=== PATIENT | male | born 1990 | race African-American/Black ===

== ENCOUNTER 2019-05-14 13:04 | Emergency (ER) | payer SELFPAY ==
[~2019-05-14] VITALS: Ht 180.3 cm; Wt 99.8 kg
[2019-05-14 14:05] VITALS: BP 149/97
--- NOTE | 2019-05-14 14:17 | NUR ---
WAIT AT LOBBY.
--- NOTE | 2019-05-14 15:22 | NUR ---
PT AMB TO CHAIR D
--- NOTE | 2019-05-14 15:37 | NUR ---
C/O L EYE PAIN , BLURRY VISION X THIS AM. WORE CONTECT LENS YESTERDAY. PT DENIES N/V/D; SKIN IS INTACT, PINK/WARM/DRY; AAOX4, PERRL, WITH EVEN AND STEADY GAIT; LUNGS CLEAR BL, BREATHING UNLABORED; HR EVEN AND REGULAR, BL PERIPHERAL PULSES PRESENT; BS ACTIVE X4, NO TENDERNESS TO PALPATION. PT DENIES ANY FEVER, CP, SOB, OR COUGH AT THIS TIME; PT STATES 5/10 PAIN AT THIS TIME; VSS; PATIENT POSITIONED FOR COMFORT; HOB ELEVATED; BEDRAILS UP X2; BED DOWN.
[2019-05-14] MEDS ORDERED: TETRACAINE HCL/PF 0.5% OPTH 4 ML BTL OP ONE ×2 (15:50→16:25)
[2019-05-14] MEDS ORDERED: FLUORESCEIN OPTH STRIP 1 MG OP ONE (15:50)
--- NOTE | 2019-05-14 16:02 | NUR ---
PT TO BED 7
[2019-05-14 16:35] VITALS: BP 149/97
--- NOTE | 2019-05-14 16:36 | NUR ---
Patient discharged with v/s stable. Written and verbal after care instructions given and explained. Patient alert, oriented and verbalized understanding of instructions. Ambulatory with steady gait. All questions addressed prior to discharge. ID band removed. Patient advised to follow up with PMD. Rx of EYE DROPS given. Patient educated on indication of medication including possible reaction and side effects. Opportunity to ask questions provided and answered.
== END 2019-05-14 16:36 | disposition home or self-care (01) ==
LOC: MED 13:04
DX: S05.02XA Injury of conjunctiva and corneal abrasion without foreign body, left eye, initial encounter (principal); X58.XXXA Exposure to other specified factors, initial encounter; Y93.89 Activity, other specified; Y92.89 Other specified places as the place of occurrence of the external cause; Y99.8 Other external cause status
CPT/HCPCS: 99283

== ENCOUNTER 2019-05-15 09:34 | Emergency (ER) | payer SELFPAY ==
[~2019-05-15] VITALS: Ht 180.3 cm; Wt 99.8 kg
[2019-05-15 09:48] VITALS: BP 166/76
--- NOTE | 2019-05-15 09:51 | NUR ---
PT TO BED 6 WITH STEADY GAIT
--- NOTE | 2019-05-15 10:15 | NUR ---
29 Y/O M C/O LEFT EYE PAIN. PT WAS IN THE ED YESTERDAY FOR CORNEAL ABRASION. PT STATES INCREASED PAIN TODAY. PT HAS BEEN USING MEDICATION PRESCRIBED YESTEDAY. PT POSITIONED FOR COMFORT. HALLE
[2019-05-15] MEDS ORDERED: TETRACAINE HCL/PF 0.5% OPTH 4 ML BTL LEFT EYE ONE (10:20)
[2019-05-15 10:39] VITALS: BP 166/76
--- NOTE | 2019-05-15 10:39 | NUR ---
Patient discharged with v/s stable. Written and verbal after care instructions given and explained. Patient verbalized understanding. Ambulatory with steady gait. All questions addressed prior to discharge. Advised to follow up with PMD.
== END 2019-05-15 10:39 | disposition home or self-care (01) ==
LOC: MED 09:34
DX: S05.02XA Injury of conjunctiva and corneal abrasion without foreign body, left eye, initial encounter (principal); X58.XXXA Exposure to other specified factors, initial encounter; Y93.89 Activity, other specified; Y92.89 Other specified places as the place of occurrence of the external cause; Y99.8 Other external cause status
CPT/HCPCS: 99283

== ENCOUNTER 2021-01-26 10:33 | Emergency (ER) | payer SELFPAY ==
[~2021-01-26] VITALS: Ht 180.3 cm; Wt 104.3 kg
[2021-01-26 10:40] VITALS: BP 120/89
[2021-01-26] MEDS ORDERED: ALBU0.0912 IH (12:10)
[2021-01-26] MEDS ORDERED: BENZ-196 PO (12:10)
[2021-01-26] MEDS ORDERED: DOXY100C12 PO (12:10)
== END 2021-01-26 12:56 | disposition home or self-care (01) ==
LOC: MED 10:33
DX: J18.9 Pneumonia, unspecified organism (principal); Z79.899 Other long term (current) drug therapy; Z79.2 Long term (current) use of antibiotics; Z79.51 Long term (current) use of inhaled steroids
CPT/HCPCS: 71045; 99283; 99284